=== PATIENT | male | born 1950 | race Caucasian/White ===

== ENCOUNTER 2016-08-04 14:20 | Inpatient (IN) | payer OTHER, MEDICARE ==
[~2016-08-04] VITALS: Ht 182.9 cm; Wt 119.1 kg
[~2016-08-04 14:20] MED LIST: BENZ100 PO; FISH500C PO; FLON0.053; IBUP-238 PO; LOVA40TA PO; TAB-TAB PO; TRAM100T19 PO; [UNRECOGNIZED DRUG - CODE] PO
[2016-08-07] MEDS ORDERED: HYDR-3288 PO (07:22)
[2016-08-07] MEDS ORDERED: ASPI81CH3 CHEW (07:23)
[2016-08-07] MEDS ORDERED: ENOX40P SQ ×2 (07:23→08:48)
[2016-08-07] MEDS ORDERED: VANCOMYCIN 1000 MG/NS 250 ML (for <70 kg) IV SCH ×2 (07:30)
[2016-08-07] MEDS ORDERED: ZOLPIDEM TARTRATE 5 MG TAB PO PRN (07:30)
[2016-08-07] MEDS ORDERED: CHLORHEXIDINE GLUCONATE 4% SOLN 120 ML BTL TOPICAL SCH (07:30)
[2016-08-07] MEDS ORDERED: SODIUM CHLORIDE 0.9% FLUSH 5 ML FLUSH IVF PRN (07:30)
[2016-08-07] MEDS ORDERED: BISACODYL 10 MG SUPP RECTAL PRN (07:30)
[2016-08-07] MEDS ORDERED: POVIDONE IODINE 7.5% SCRUB 118 ML BOTTLE TOPICAL SCH (07:30)
[2016-08-07] MEDS ORDERED: ONDANSETRON HCL 4 MG/2 ML VIAL IVP PRN (07:30)
[2016-08-07] MEDS ORDERED: ceFAZolin 2 GM PREMIX 50 ML IV SCH (07:30)
[2016-08-07] MEDS ORDERED: ACETAMINOPHEN/HYDROcodone 325 MG/7.5 MG TAB PO PRN (07:30)
[2016-08-07] MEDS ORDERED: Post-op Orders (for Pharmacy) MISC XX ONE (07:30)
[2016-08-07] MEDS ORDERED: NALOXONE HCL 0.4 MG/ML AMP IV PRN (07:30)
[2016-08-07] MEDS ORDERED: diphenhydrAMINE HCL 50 MG/ML VIAL IV PRN (07:30)
[2016-08-07] MEDS ORDERED: MORPHINE SULFATE 4 MG/ML INJ IV PUSH PRN (07:30)
[2016-08-07] MEDS ORDERED: METOPROLOL TARTRATE 25 MG TAB PO PRN (07:45)
[2016-08-07] MEDS ORDERED: POVIDONE IODINE 5% (ANTISEPSIS KIT) 4 APPLICATIONS EACH NARE PRN (07:45)
[2016-08-07] MEDS ORDERED: LACTATED RINGER'S 1000 ML IV PRN (07:45)
[2016-08-07] MEDS ORDERED: CHLORHEXIDINE GLUCONATE 2 % 1 PACK (2 CLOTHS) TOPICAL PRN (07:45)
[2016-08-07] MEDS ORDERED: SODIUM CHLORID 0.9% 500 ML IV PRN (07:45)
[2016-08-07] MEDS ORDERED: INSULIN HUMAN REGULAR 1,000 UNITS/10 ML VIAL SQ PRN (07:45)
[2016-08-07] MEDS ORDERED: [UNRECOGNIZED DRUG - CODE] PO (07:51)
[2016-08-07] MEDS ORDERED: B-COCAP9 PO (07:51)
[2016-08-07] MEDS ORDERED: METF500T PO (07:51)
[2016-08-07] MEDS ORDERED: ZINC30TA2 PO (07:51)
[2016-08-07] MEDS ORDERED: FISH1000 PO (07:51)
[2016-08-07] MEDS ORDERED: FENO160T PO (07:51)
[2016-08-07] MEDS ORDERED: CYAN1TAB24 PO (07:51)
[2016-08-07] MEDS ORDERED: MULT1TAB78 PO (07:51)
[2016-08-07] MEDS ORDERED: VITA500T PO (07:51)
[2016-08-07] MEDS ORDERED: VITACRE PO (07:51)
[2016-08-07] MEDS ORDERED: IBUP800T23 PO (07:51)
[2016-08-07] MEDS ORDERED: [UNRECOGNIZED DRUG - CODE] PO (07:51)
[2016-08-07 07:59] VITALS: BP 106/68; PULSE 79; RESP 20; TEMP 98; O2SAT 96
[2016-08-07] MEDS ORDERED: DEXAMETHASONE SOD PHOS 20 MG/5 ML VIAL IV SCH (08:00)
[2016-08-07] MEDS ORDERED: GENTAMICIN SULFATE 80 MG/2 ML VIAL ONE ×2 (08:38→11:27)
[2016-08-07] MEDS ORDERED: PERC5TAB12 PO (08:48)
[2016-08-07] MEDS ORDERED: ASPI81CH37 CHEW (08:49)
[2016-08-07] MEDS ORDERED: TRANEXAMIC ACID IV SCH (09:00)
[2016-08-07] MEDS: SODIUM CHLORIDE 0.9% FLUSH 5 ML FLUSH IVF SCH ×2 (09:00→20:39)
[2016-08-07] MEDS ORDERED: ROPIVACAINE PERI-ARTICULAR INJECTION. P-ARTICULR SCH ×5 (09:00)
[2016-08-07] MEDS ORDERED: TRANEXAMIC PERI-ARTICULAR 3,000 MG/NS 100 ML P-ARTICULR SCH ×2 (09:00)
[2016-08-07] MEDS ORDERED: SODIUM CHLORIDE 0.9% IV SCH (09:00)
[2016-08-07] MEDS ORDERED: ACETAMINOPHEN 1000 MG/100 ML VIAL IV ONE (09:51)
[2016-08-07] MEDS ORDERED: FAMOTIDINE 20 MG/2 ML VIAL ONE (09:51)
[2016-08-07] MEDS ORDERED: MIDAZOLAM HCL 2 MG/2 ML VIAL ONE (09:52)
[2016-08-07] MEDS ORDERED: MORPHINE SULFATE 4 MG/ML INJ ONE (12:37)
[2016-08-07] MEDS ORDERED: fentaNYL CITRATE 250 MCG/5 ML AMP ONE (12:37)
[2016-08-07] MEDS ORDERED: *MEPERIDINE 25 MG INJ VIAL PERIprocedural Use ONLY ONE (12:49)
[2016-08-07] MEDS: SODIUM CHLOR 0.9% 1000 ML INJ 1,000 ML IV SCH ×2 (13:00→17:19)
--- NOTE | 2016-08-07 13:15 | HHI.DCPOC ---
Discharge Care Plan Diagnosis: (1) Primary localized osteoarthrosis, lower leg Your Health Problems Are: Difficulty with ADL Goals to Promote Your Health * To prevent worsening of your condition and complications * To maintain your health at the optimal level Directions to Meet Your Goals Take your medications as prescribed Follow your dietary instruction Follow activity as directed Keep your appointments as scheduled Take your immunizations and boosters as scheduled If your symptoms worsen call your PCP, if no PCP go to Urgent Care Center or Emergency Room Smoking is Dangerous to Your Health. Avoid second hand smoke Call the 24-hour hour crisis hotline for domestic abuse at João Barrett Aug 07, 2016 13:15
[2016-08-07] MEDS ORDERED: CPMMACHINE (13:16)
[2016-08-07] MEDS ORDERED: COMMODE 3-IN-11 MIS (13:16)
[2016-08-07] MEDS ORDERED: WALKER WHEELS/F1 MIS (13:16)
--- NOTE | 2016-08-07 13:20 | RADRPT ---
EXAM DATE/TIME: 08/07/2016 12:46 [facility] COMPARISON: No previous studies available for comparison. INDICATIONS : Post op left knee replacement MEDICAL HISTORY : None. SURGICAL HISTORY : left knee ENCOUNTER: Subsequent ACUITY: 1 day PAIN SCORE: Non-responsive. LOCATION: Left knee FINDINGS: Left total knee arthroplasty is noted. Air-fluid level in the suprapatellar region with subcutaneous emphysema identified. Tibial and femoral components appear well seated. CONCLUSION: Postsurgical changes. Hector Arroyo MD on August 07, 2016 at 13:18 Board Certified Radiologist. This report was verified electronically.
[2016-08-07] MEDS ORDERED: *morphine SULFATE 8 MG/ML PERIprocedure ONLY ONE (13:33)
[2016-08-07] MEDS ORDERED: NEOSTIGMINE 3 MG/3 ML SYR IV ONE (14:37)
[2016-08-07] MEDS ORDERED: ONDANSETRON HCL 4 MG/2 ML VIAL IV PUSH ONE (14:37)
[2016-08-07] MEDS ORDERED: PHENYLEPH/NS 1000 MCG/10 ML SYR IV ONE (14:37)
[2016-08-07] MEDS ORDERED: PROPOFOL 200 MG/20 ML AMP IV ONE (14:37)
[2016-08-07] MEDS ORDERED: LACTATED RINGER'S 1000 ML INJ 1,000 ML IV ONE (14:38)
[2016-08-07 16:00] VITALS: BP 124/82; PULSE 86; RESP 19; TEMP 96.1; O2SAT 96
[2016-08-07] MEDS ORDERED: MULTIVITAMIN HEMATINIC THERAPEUTIC TAB PO SCH (18:00)
[2016-08-07] MEDS ORDERED: LORazepam 0.5 MG TAB PO PRN (18:00)
[2016-08-07 18:14] VITALS: O2SAT 96
[2016-08-07] MEDS: metFORMIN HCL 500 MG TAB PO SCH (18:31)
[2016-08-07] MEDS: CYANOCOBALAMIN 1,000 MCG TAB PO SCH (18:31)
[2016-08-07] MEDS: FENOFIBRATE 145 MG TAB PO SCH (18:31)
[2016-08-07] MEDS: ASPIRIN 81 MG CHEW TAB CHEW SCH (20:39)
[2016-08-07 20:40] VITALS: BP 111/59; PULSE 69; RESP 17; TEMP 97.6; O2SAT 94
[2016-08-08] VITALS (7 sets, daily range): BP systolic 108–128; BP diastolic 54–64; PULSE 56–80; RESP 16–18; TEMP 96.9–99.3; O2SAT 93–98
[2016-08-08] MEDS: SODIUM CHLOR 0.9% 1000 ML INJ 1,000 ML IV SCH ×2 (03:05→21:51)
[2016-08-08] MEDS: ACETAMINOPHEN/HYDROcodone 325 MG/7.5 MG TAB PO PRN ×4 (03:06→21:51)
[2016-08-08 08:06] LABS: HEMATOCRIT 36.6 % (39.0-51.0); MEAN CELL VOLUME 94.7 FL (80.0-100.0); MEAN CORPUSCULAR HEMOGLOBIN 33.3 PG (27.0-34.0); MEAN CORPUSCULAR HGB CONC 35.2 % (32.0-36.0); PLATELET COUNT 148 TH/MM3 (150-450); RED BLOOD COUNT 3.86 MIL/MM3 (4.50-5.90); RED CELL DISTRIBUTION WIDTH 13.7 % (11.6-17.2); REVIEW FLAG FINAL; WHITE BLOOD COUNT 7.7 TH/MM3 (4.0-11.0)
[2016-08-08 08:22] LABS: BICARBONATE 27.3 MEQ/L (21.0-32.0); POTASSIUM 3.7 MEQ/L (3.5-5.1)
--- NOTE | 2016-08-08 08:53 | PD.ORT.PN ---
Subjective Post Op Day #: 1 Subjective Remarks pain tolerable Objective Vitals Vital Signs Date Time Temp Pulse Resp B/P Pulse Ox O2 Delivery O2 Flow Rate FiO2 08/08/16 04:26 97.2 62 17 108/56 95 08/08/16 00:35 96.9 64 17 108/54 96 08/07/16 20:40 97.6 69 17 111/59 94 08/07/16 18:14 96 Nasal Cannula 2.00 08/07/16 16:00 96.1 86 19 124/82 96 08/07/16 14:00 97.7 62 16 123/65 95 Nasal Cannula 2 08/07/16 13:45 63 16 126/68 94 Nasal Cannula 2 08/07/16 13:38 15 08/07/16 13:38 15 08/07/16 13:30 65 15 128/70 94 Nasal Cannula 2 08/07/16 13:15 69 15 139/78 97 Nasal Cannula 3 08/07/16 13:00 78 15 142/82 96 Nasal Cannula 3 08/07/16 12:45 81 15 154/88 97 Nasal Cannula 4 08/07/16 12:30 97.1 89 16 168/99 94 Nasal Cannula 4 I/O 08/07/16 08/07/16 08/07/16 08/08/16 08/08/16 08/08/16 07:00 15:00 23:00 07:00 15:00 23:00 Intake Total 1000 ml 240 ml 120 ml Output Total 500 ml 450 ml 650 ml Balance 500 ml -210 ml -530 ml Intake Oral 240 ml 120 ml IV Total 100 ml Other 900 ml Output Urine Total 400 ml 450 ml 650 ml Estimated Blood Loss 100 ml # Bowel Movements 0 Result Diagram: 08/08/16 0647 08/08/16 0647 Objective Remarks in bed, nad incision no erythema, no drainage neg homans nvi Assessment & Plan Ortho Post Op Day #: 1 Problem List: Assessment and Plan s/p L TKA wbat daily dressing changes lovenox rx in chart d/c planning home with [facility] and pt f/up dr. barone 2 weeks João Barrett Aug 08, 2016 08:53
--- NOTE | 2016-08-08 08:55 | HHI.FF ---
Face to Face Verification Diagnosis: (1) Primary localized osteoarthrosis, lower leg Physical Therapy Gait training, Safety evaluation, Transfer training, bed to chair Knee: Total knee, Protocol: Left, Full weight bearing Left LE Weight Bearing: WB as tolerated Nursing RN: 3 days/week x 2 weeks Nursing: Brenden teaching, Dressing changes Dressing Changes: Daily dressing change I have seen patient Jareth Do on 08/08/16. My clinical findings support the need for the requested home health care services because: Limited ability to care for self High risk of falls I certify that my clinical findings support that this patient is homebound because: Post-op weakness Unsteady gait/balance João Barrett Aug 08, 2016 08:55
[2016-08-08] MEDS ORDERED: MULTIVITAMIN HEMATINIC THERAPEUTIC TAB PO SCH (09:00)
[2016-08-08] MEDS: FENOFIBRATE 145 MG TAB PO SCH (10:20)
[2016-08-08] MEDS: VITAMIN B CMPLX/VITC/FOLIC AC CAP PO SCH (10:20)
[2016-08-08] MEDS: SODIUM CHLORIDE 0.9% FLUSH 5 ML FLUSH IVF SCH ×2 (10:29→21:00)
[2016-08-08] MEDS: ASPIRIN 81 MG CHEW TAB CHEW SCH ×2 (10:30→21:51)
[2016-08-08] MEDS: CYANOCOBALAMIN 1,000 MCG TAB PO SCH (10:30)
[2016-08-08] MEDS: metFORMIN HCL 500 MG TAB PO SCH (10:30)
--- NOTE | 2016-08-08 11:38 | PD.CONS ---
HPI Service [facility] Consult Requested By Dr. Kolb Reason for Consult Medical management Primary Care Physician Rambo Fosneca M.D. Diagnoses: (1) Chronic pain of left knee (2) Primary localized osteoarthrosis, lower leg (3) Hyperlipemia (4) Obesity (5) Pre-diabetes History of Present Illness 66-year-old male with a medical history significant for hyperlipidemia, obesity , prediabetes, osteoarthritis of the left knee. The patient is admitted by the orthopedic service for left knee arthroplasty. The patient reports he has had problems with the left knee for the past 10 years. He tried conservative management including pain medication and injections without relief. He was admitted to the hospital for definitive treatment. Regarding prediabetes, he reports he was started on metformin by his PCP. He attributed this to weight gain since he has not been active due to his knee issues. Patient is seen in his room. He has no complaints currently. Pain is controlled. Review of Systems Constitutional: DENIES: Fever Musculoskeletal: DENIES: Joint pain Except as stated in HPI: all other systems reviewed are Neg Past Family Social History Allergies: Coded Allergies: No Known Allergies (Verified , 08/07/16) Past Medical History Hyperlipidemia Osteoarthritis Prediabetes Obesity Past Surgical History Left knee arthroscope in 2009 Reported Medications Reported Meds & Active Scripts Active Commode 3-in-1 (Device) 1 Mis Mis 1 Ea .ROUTE DIRECTED Walker with Front Wheels (Device) 1 Mis Mis 1 Ea .ROUTE DIRECTED Aspirin Low Dose (Aspirin) 81 Mg Chew 81 Mg CHEW BID Lovenox Inj (Enoxaparin Sodium) 40 Mg/0.4 Ml Syr 40 Mg SQ DAILY Percocet (Oxycodone-Acetaminophen) 5-325 mg Tab 1-2 Tab PO Q4H PRN Aspirin 81 Low Dose (Aspirin) 81 Mg Chew 81 Mg CHEW BID Lovenox Inj (Enoxaparin Sodium) 40 Mg/0.4 Ml Syr 40 Mg SQ DAILY [place] (Hydrocodone-Acetaminophen) 7.5-325 mg Tab 1-2 Tab PO Q6H PRN Reported Beta Carotene 10,000 Unit Cap 10,000 Units PO DAILY Dhea (Prasterone (DHEA)) 25 Mg Tab 1 Tab PO DAILY B12 (Cyanocobalamin) 1,000 Mcg Tab 1 Tab PO DAILY Vitamin C (Ascorbic Acid) 500 Mg Tab 500 Mg PO DAILY Vitamin E (Vitamin E (Topical)) 1 Cre Cre 1 Tab PO DAILY Super B-Complex (B-Complex W/Biotin & Folic Acid) 1 Cap 1 Cap PO DAILY Zinc (Zinc Gluconate) 30 Mg Tab 1 Tab PO DAILY Fish Oil ([place]-3 Fatty Acids) 1,000 Mg Cap 2 Cap PO BID Multivitamin Adults 50+ (Multiple Vitamins W/ Minerals) 1 Tab Tab 1 Tab PO DAILY Fenofibrate 160 Mg Tab 160 Mg PO DAILY Metformin (Metformin HCl) 500 Mg Tab 500 Mg PO DAILY With a meal Ibuprofen 800 Mg Tab 800 Mg PO TID Family History Mother with is diagnosed with colon cancer at age 50 Father with history of mesothelioma Social History Patient denies current alcohol, tobacco, or illicit drug use Physical Exam Vital Signs Vital Signs Date Time Temp Pulse Resp B/P Pulse Ox O2 Delivery O2 Flow Rate FiO2 08/08/16 08:00 98.2 56 18 113/56 93 08/08/16 04:26 97.2 62 17 108/56 95 08/08/16 00:35 96.9 64 17 108/54 96 08/07/16 20:40 97.6 69 17 111/59 94 08/07/16 18:14 96 Nasal Cannula 2.00 08/07/16 16:00 96.1 86 19 124/82 96 08/07/16 14:00 97.7 62 16 123/65 95 Nasal Cannula 2 08/07/16 13:45 63 16 126/68 94 Nasal Cannula 2 08/07/16 13:38 15 08/07/16 13:38 15 08/07/16 13:30 65 15 128/70 94 Nasal Cannula 2 08/07/16 13:15 69 15 139/78 97 Nasal Cannula 3 08/07/16 13:00 78 15 142/82 96 Nasal Cannula 3 08/07/16 12:45 81 15 154/88 97 Nasal Cannula 4 08/07/16 12:30 97.1 89 16 168/99 94 Nasal Cannula 4 Physical Exam GENERAL: This is a well-nourished, well-developed patient, in no apparent distress. SKIN: No rashes, ecchymoses or lesions. Cool and dry. HEAD: Atraumatic. Normocephalic. No temporal or scalp tenderness. EYES: Pupils equal round and reactive. Extraocular motions intact. No scleral icterus. No injection or drainage. ENT: Nose without bleeding, purulent drainage or septal hematoma. Throat without erythema, tonsillar hypertrophy or exudate. Uvula midline. Airway patent. NECK: Trachea midline. No JVD or lymphadenopathy. Supple, nontender, no meningeal signs. CARDIOVASCULAR: Regular rate and rhythm without murmurs, gallops, or rubs. RESPIRATORY: Clear to auscultation. Breath sounds equal bilaterally. No wheezes , rales, or rhonchi. GASTROINTESTINAL: Abdomen soft, non-tender, nondistended. No hepato-splenomegaly , or palpable masses. No guarding. MUSCULOSKELETAL: Left knee postop dressing is clean and dry. Neurovascularly intact distally. NEUROLOGICAL: Awake and alert. Cranial nerves II through XII intact. Motor and sensory grossly within normal limits. Five out of 5 muscle strength in all muscle groups. Normal speech. Laboratory Laboratory Tests Test 08/08/16 06:47 White Blood Count 7.7 Red Blood Count 3.86 Hemoglobin 12.9 Hematocrit 36.6 Mean Corpuscular Volume 94.7 Mean Corpuscular Hemoglobin 33.3 Mean Corpuscular Hemoglobin 35.2 Concent Red Cell Distribution Width 13.7 Platelet Count 148 Mean Platelet Volume 8.8 Sodium Level 140 Potassium Level 3.7 Chloride Level 105 Carbon Dioxide Level 27.3 Anion Gap 8 Blood Urea Nitrogen 22 Creatinine 1.14 Estimat Glomerular Filtration 64 Rate Random Glucose 147 Calcium Level 8.4 Result Diagram: 08/08/16 0647 08/08/16 0647 Imaging Last Impressions Knee X-Ray 08/07/16 0719 Signed Impressions: Service Date/Time: Sunday, August 07, 2016 12:46 - CONCLUSION: Postsurgical changes. Hector Arroyo MD Assessment and Plan Problem List: (1) Primary localized osteoarthrosis, lower leg ICD Code: M17.10 Status: Acute Plan: Patient is status post left knee arthroplasty. - Continue routine postoperative care per orthopedics - Pain control (2) Obesity ICD Code: E66.9 Status: Acute Plan: Patient counseled on diet and exercise once he recovers from surgery. (3) Pre-diabetes ICD Code: R73.03 Status: Chronic Plan: Continue metformin (4) Hyperlipemia ICD Code: E78.5 Status: Chronic Plan: Continue statin (5) Postoperative anemia ICD Code: D64.9 Status: Acute Plan: Mild. No signs of bleeding. Monitor clinically. Jill Rosario MD Aug 08, 2016 11:38
[2016-08-08] MEDS: ENOXAPARIN SODIUM 40 MG/0.4 ML SYRINGE SQ SCH (11:58)
[2016-08-08] MEDS: MULTIVITAMINS/MINERALS THERAPEUTIC TAB PO SCH (21:51)
[2016-08-08] MEDS: DOCUSATE SODIUM 100 MG CAP PO SCH (21:51)
[2016-08-09 00:36] VITALS: BP 120/59; PULSE 79; RESP 17; TEMP 99.9; O2SAT 94
[2016-08-09] MEDS ORDERED: MAGNESIUM HYDROXIDE SUSP 30 ML CUP PO PRN (03:30)
[2016-08-09] MEDS ORDERED: DOCUSATE SODIUM 50 MG/SENNA 8.6 MG TAB PO PRN (03:30)
[2016-08-09] MEDS: ACETAMINOPHEN/HYDROcodone 325 MG/7.5 MG TAB PO PRN ×4 (03:36→18:17)
[2016-08-09 04:45] VITALS: BP 124/68; PULSE 76; RESP 17; TEMP 101.2; O2SAT 94
[2016-08-09 07:13] LABS: HEMATOCRIT 37.7 % (39.0-51.0); MEAN CELL VOLUME 95.3 FL (80.0-100.0); MEAN CORPUSCULAR HEMOGLOBIN 32.7 PG (27.0-34.0); MEAN CORPUSCULAR HGB CONC 34.3 % (32.0-36.0); PLATELET COUNT 124 TH/MM3 (150-450); RED BLOOD COUNT 3.96 MIL/MM3 (4.50-5.90); RED CELL DISTRIBUTION WIDTH 13.6 % (11.6-17.2); REVIEW FLAG FINAL; WHITE BLOOD COUNT 7.2 TH/MM3 (4.0-11.0)
[2016-08-09 07:37] LABS: BICARBONATE 29.5 MEQ/L (21.0-32.0); POTASSIUM 3.8 MEQ/L (3.5-5.1)
--- NOTE | 2016-08-09 07:57 | PD.ORT.PN ---
Subjective Post Op Day #: 2 Subjective Remarks pain tolerable. denies cp and sob. Objective Vitals Vital Signs Date Time Temp Pulse Resp B/P Pulse Ox O2 Delivery O2 Flow Rate FiO2 08/09/16 04:45 101.2 76 17 124/68 94 08/09/16 00:36 99.9 79 17 120/59 94 08/08/16 21:49 96 21 08/08/16 20:29 99.3 80 18 128/63 96 08/08/16 17:21 16 08/08/16 16:00 98.2 60 17 114/64 95 08/08/16 12:00 98.2 76 16 115/62 98 08/08/16 08:00 98.2 56 18 113/56 93 I/O 08/08/16 08/08/16 08/08/16 08/09/16 08/09/16 08/09/16 07:00 15:00 23:00 07:00 15:00 23:00 Intake Total 120 ml 720 ml 240 ml 120 ml Output Total 650 ml 300 ml 400 ml Balance -530 ml 420 ml 240 ml -280 ml Intake Oral 120 ml 720 ml 240 ml 120 ml Output Urine Total 650 ml 300 ml 400 ml # Voids 1 1 # Bowel Movements 0 0 Result Diagram: 08/09/16 0638 08/09/1638 Objective Remarks in bed, nad dressing c/d/i neg homans nvi Assessment & Plan Ortho Post Op Day #: 2 Problem List: Assessment and Plan s/p L TKA wbat daily dressing changes lovenox rx in chart low grade temp - OOB and IS. order UA and CXR d/c planning home with [facility] and pt. if tests neg and temp resolves ok to d/c this afternoon. f/up dr. barone 2 weeks João Barrett Aug 09, 2016 07:57
[2016-08-09 08:00] VITALS: BP 135/72; PULSE 78; RESP 16; TEMP 100.7; O2SAT 97
--- NOTE | 2016-08-09 08:58 | MP ---
cc: ЕЛЕНА GONZALEZ DATE OF SURGERY 08/07/16 PREOPERATIVE DIAGNOSIS Left knee osteoarthritis POSTOPERATIVE DIAGNOSES Left knee osteoarthritis PROCEDURE Left total knee arthroplasty SURGEON Dr. Diane Gonzalez MACHINE I TRIMMER ETHAN Cochran ANESTHESIA General with femoral nerve block. ESTIMATED BLOOD LOSS 400 mL COMPLICATIONS None. IMPLANTS USED DePuy attune size eight posterior stabilized femoral component, size eight rotating platform tibia baseplate, size eight polyethylene tibial insert, size 38 mm patella. JUSTIFICATION The patient is a 66-year-old male with history of severe end-stage osteoarthritis involving the left knee. He has severe disabling pain with any walking, ambulation, with activities or pain at rest. Pain does interfere with activities of daily living. He has failed greater 3 months of nonoperative conservative treatment to include medication therapy, injections, ambulatory assistive aids, home exercise program, activity modification, weight loss attempts. X-rays of left knee revealed severe end-stage osteoarthritis with bone on bone space narrowing, subchondral sclerosis, subchondral cyst osteophyte formation and varus deformity. The patient counseled as risks, benefits and alternatives of the above-handed proposed surgical procedure. PROCEDURE IN DETAIL The risks of procedure itself were discussed which include but are not limited to injury, bleeding, infection, damage to nerves, blood vessels, pain, failure of components, blood clots, pulmonary embolism and even . The pain was severe. He favored the benefits over the risks and did wish to proceed with surgery. A written consent was obtained. The patient identified by name, taken to the operating room, placed supine on the operating table. General anesthesia was administered as well as 2 grams of IV Ancef and 1 gram of IV vancomycin. He did receive preoperative femoral nerve block. A well-padded tourniquet was placed on left thigh. Left lower extremity prepped and draped using isopropyl alcohol, Hibiclens solution and Chloraprep solution. An Esmarch bandage was used to exsanguinate left lower extremity. Tourniquet inflated to 250 mmHg. A longitudinal incision was made over the anterior aspect of the left knee. A medial parapatellar arthrotomy incision was performed, The patella was everted. Patellar resection guide was used to resect 9 mm of patella. The size 38 mm guide was placed. Three drill holes were placed and a 30 mm trial fit well. Attention was turned to the femur. An intramedullary guidewire was placed and an oscillating saw was used to resect 10 mm of distal femur, 5 degrees off the anatomic valgus axis alignment. Attention was turned to the tibia where an extramedullary tibia guide was set to remove 5 mm off the lowest portion of medial tibial plateau. The tibia guide was sewn in place and tibia cut was performed. A 5 mm spacer block showed full extension. Attention was turned back to the femur. AP sizing block measured a size eight. The anterior reference 3 degree external rotation guide was used to pin a size [address]. The anterior posterior chamfer cuts were performed. A size AP sterile box guide was pinned in place. PCL box cut with an oscillating saw. The medial lateral meniscus remnants were removed as well as bone and soft tissue debris from posterior portion of the knee. A size eight tibia base was pinned in place, tibia drilled. Final components cemented in place. Range of motion 0 to 140. No evidence of tibial lift-off. Varus-valgus balance appeared appropriate and symmetric. Patella was noted to track centrally. Tourniquet was deflated. Bovie cautery was used for hemostasis. The knee was thoroughly irrigated with pulse lavage antibiotic impregnated solution. The arthrotomy incision was closed with #1 Vicryl suture. Subcutaneous layer with 2-0 Vicryl suture. Skin was closed with Dermabond. Sterile dressing applied. The patient tolerate the procedure well. No intraoperative complications noted. Donavon Barrett, physician staffing assistant certified, was present during the entire procedure to include patient positioning and the procedure itself. The medical necessity of a physician staffing assistant was indicated due to the complexity of the procedure. He assisted with appropriate manipulation of the leg and also traction of muscle, tendon, bone and neurovascular structures. He assisted with preparation of bone and also implantation of prosthetic replacement. MD KRISSY Mota/ /12:05 PM /8:47 AM
[2016-08-09] MEDS: SODIUM CHLORIDE 0.9% FLUSH 5 ML FLUSH IVF SCH (09:00)
[2016-08-09] MEDS: ASPIRIN 81 MG CHEW TAB CHEW SCH (09:00)
[2016-08-09] MEDS: metFORMIN HCL 500 MG TAB PO SCH (09:08)
--- NOTE | 2016-08-09 09:13 | RADRPT ---
EXAM DATE/TIME: 08/09/2016 08:33 [facility] COMPARISON: No previous studies available for comparison. INDICATIONS : Patient states he felt like he had a fever last night and was short of breath. MEDICAL HISTORY : None. SURGICAL HISTORY : Total knee replacement, left. ENCOUNTER: Initial ACUITY: 2 days PAIN SCORE: 0/10 LOCATION: Bilateral chest FINDINGS: A single view of the chest demonstrates the lungs to be symmetrically aerated without evidence of mas s, infiltrate or effusion. The cardiomediastinal contours are unremarkable. Osseous structures are intact. CONCLUSION: No acute disease. Kennedy Oliveros MD on August 09, 2016 at 9:11 Board Certified Radiologist. This report was verified electronically.
[2016-08-09] MEDS: VITAMIN B CMPLX/VITC/FOLIC AC CAP PO SCH (11:32)
[2016-08-09] MEDS: FENOFIBRATE 145 MG TAB PO SCH (11:32)
[2016-08-09] MEDS: MULTIVITAMINS/MINERALS THERAPEUTIC TAB PO SCH (11:32)
[2016-08-09] MEDS: CYANOCOBALAMIN 1,000 MCG TAB PO SCH (11:32)
[2016-08-09] MEDS: DOCUSATE SODIUM 100 MG CAP PO SCH (11:34)
--- NOTE | 2016-08-09 11:45 | HHI.PR ---
Subjective Remarks Patient reports he is feeling okay. Pain is controlled. He had a fever earlier this morning. He denies cough, or shortness of breath. He denies any dysuria or suprapubic pain. He feels well otherwise. Objective Vitals Vital Signs Date Time Temp Pulse Resp B/P Pulse Ox O2 Delivery O2 Flow Rate FiO2 08/09/16 08:00 100.7 78 16 135/72 97 08/09/16 04:45 101.2 76 17 124/68 94 08/09/16 00:36 99.9 79 17 120/59 94 08/08/16 21:49 96 21 08/08/16 20:29 99.3 80 18 128/63 96 08/08/16 17:21 16 08/08/16 16:00 98.2 60 17 114/64 95 08/08/16 12:00 98.2 76 16 115/62 98 I/O 08/08/16 08/08/16 08/08/16 08/09/16 08/09/16 08/09/16 07:00 15:00 23:00 07:00 15:00 23:00 Intake Total 120 ml 720 ml 240 ml 120 ml Output Total 650 ml 300 ml 400 ml Balance -530 ml 420 ml 240 ml -280 ml Intake Oral 120 ml 720 ml 240 ml 120 ml Output Urine Total 650 ml 300 ml 400 ml # Voids 1 1 # Bowel Movements 0 0 Result Diagram: 08/09/16 0638 08/09/16 0638 Imaging Last Impressions Chest X-Ray 08/09/16 0000 Signed Impressions: Service Date/Time: Tuesday, August 09, 2016 08:33 - CONCLUSION: No acute disease. Kennedy Oliveros MD Knee X-Ray 08/07/16 0719 Signed Impressions: Service Date/Time: Sunday, August 07, 2016 12:46 - CONCLUSION: Postsurgical changes. Hector Arroyo MD Objective Remarks GENERAL: This is a well-nourished, well-developed patient, in no apparent distress. CARDIOVASCULAR: Normal rate and regular rhythm without murmurs, gallops, or rubs. RESPIRATORY: Good respiratory efforts. Breath sounds equal and clear to auscultation bilaterally. GASTROINTESTINAL: Abdomen soft, non-tender, non-distended. Normal active bowel sounds MUSCULOSKELETAL: Postop left knee dressing is intact. Neurovascularly and tagged distally. Range of motion on the left knee is fair. NEURO: Alert & Oriented x4 to person, place, time, situation. Moves all ext x4 PSYCH: Appropriate mood and affect. A/P Problem List: (1) Primary localized osteoarthrosis, lower leg ICD Code: M17.10 Status: Acute Plan: Patient is status post left knee arthroplasty. - Continue routine postoperative care per orthopedics - Pain control (2) Obesity ICD Code: E66.9 Status: Acute Plan: Patient counseled on diet and exercise once he recovers from surgery. (3) Pre-diabetes ICD Code: R73.03 Status: Chronic Plan: Continue metformin (4) Hyperlipemia ICD Code: E78.5 Status: Chronic Plan: Continue statin (5) Postoperative anemia ICD Code: D64.9 Status: Acute Plan: Mild. No signs of bleeding. Monitor clinically. (6) Fever ICD Code: R50.9 Status: Acute Plan: Probably related to postoperative stress. No signs of acute infection. Chest x-ray is normal. Urinalysis is pending. Discharge Planning If no further fever and urinalysis is unremarkable, patient can be discharged home. Jill Rosario MD Aug 09, 2016 11:45
[2016-08-09 12:00] VITALS: BP 106/77; PULSE 78; RESP 18; TEMP 98.6; O2SAT 95
[2016-08-09 12:03] LABS: BLOOD, URINE NEG (NEG); COMMENT (UR) CULT NOT INDICATED; CULTURE IF INDICATED CULT NOT INDICATED; GLUCOSE,URINE NEG (NEG); KETONE, URINE NEG (NEG); NITRITE,URINE NEG (NEG); SQUAMOUS EPITHELIAL CELL URINE <1 /hpf (0-5); URINE COLOR YELLOW (YELLW/STRAW)
[2016-08-09] MEDS: ENOXAPARIN SODIUM 40 MG/0.4 ML SYRINGE SQ SCH (13:12)
[2016-08-09 16:00] VITALS: BP 114/62; PULSE 64; RESP 16; TEMP 97.1; O2SAT 96
[2016-08-09 16:09] VITALS: O2SAT 95
--- NOTE | 2016-08-14 08:33 | MD ---
cc: ЕЛЕНА GONZALEZ M.D. ADMISSION DATE: 08/07/2016 DISCHARGE DATE: 08/09/2016 ADMITTING DIAGNOSIS: Severe degenerative osteoarthritis of the left knee. DISCHARGE DIAGNOSIS: Severe degenerative osteoarthritis of the left knee. HISTORY OF PRESENT ILLNESS: Mr. Do is a 66-year-old male who has been a patient of Dr. Елена Gonzalez at the [facility] for many years regarding his left knee pain. The patient states the pain has been progressive. He has been treated for this ailment for greater than three years duration. He notes currently he has a severe aching sensation in the left knee with weightbearing activities. He has no alleviating factors at this point in time although in the past he has tried medications, bracing, physical therapy, a home exercise program and multiple corticosteroid injections without relief of symptoms. He does have x-ray evidence of severe degenerative osteoarthritis of the left knee. While in the office, the patient was counseled on the diagnosis and treatment options and risks, benefits and indications were all discussed. The patient did elect to proceed with surgical intervention to include a left total knee arthroplasty. Date of surgery 08/07/2016. Left total knee arthroplasty. Postop after surgery the patient was admitted to [facility] where he received appropriate medical management, pain control, DVT prophylaxis as well as physical therapy. Once being discharged from the hospital, the patient was cleared to go home where he will receive home health care and home physical therapy. He is in stable condition. He may weight bear as tolerated. He has been instructed on proper wound care management and is to receive daily dressing changes. He has been provided prescriptions for pain control as well as DVT prophylaxis medications. He has also been provided a follow-up appointment to see Dr. Елена Gonzalez in the office one to two weeks from the date of surgery. The patient has asked appropriate questions, which have been answered. The patient has been discharged. Dictated by Donavon Barrett PA-C. MD KRISSY Mota/TEJ /8:02 AM /8:33 AM
== END 2016-08-09 19:49 | disposition home health service (06) | DRG 470 ==
LOC: HSDI 08-07 06:59 → N06A 08-07 15:05
PROVIDERS: ADMIT Orthopaedic Surgery Sports Medicine; ATTEND Orthopaedic Surgery Sports Medicine
PROC: 0SRD0J9 Replacement of Left Knee Joint with Synthetic Substitute, Cemented, Open Approach (ICD-10-PCS; principal; 2016-08-07 09:52)
DX: M17.12 Unilateral primary osteoarthritis, left knee (principal); E78.5 Hyperlipidemia, unspecified; E66.9 Obesity, unspecified; R73.03 Prediabetes; R50.82 Postprocedural fever; D64.9 Anemia, unspecified
CPT/HCPCS: 71010; 73560; 80048; 81001; 85027; 86850; 86900; 86901; 94150; C1776; J0131; J0171; J0690; J0735; J1100; J1580; J1650; J1885; J2175; J2250; J2270; J2370; J2405; J2710; J2795; J3010; J3370; J7030; J7050; J7120; L1830